=== PATIENT | male | born 1980 | race Caucasian/White ===

== ENCOUNTER 2016-08-09 15:45 | Emergency (ER) | payer BC ==
[~2016-08-09] VITALS: Ht 172.7 cm; Wt 72.6 kg
[2016-08-09] MEDS ORDERED: PROPECIA1 MG PO (16:05)
--- NOTE | 2016-08-09 16:26 | Emergency Room Report ---
History of Present Illness General Chief Complaint: Fever Source: Patient Present Illness HPI The patient is a 35-year-old male with a history of inflammatory bowel disease presenting for 3 weeks of continuous fever. The patient states that he was seen by his primary care doctor was unable to provide a diagnosis and told the patient to come to the emergency department. The patient has had a negative flu swab and was treated with Tamiflu which did not help. The patient has been using Tylenol for fever which does help but the fever returned soon after. The patient states the temperature is range from 99.9F to 101F. the patient does admit to a cough which began 5 days prior. The patient denies any other symptoms Including nausea, vomiting, shortness of breath, chest pain, night sweats, rash, abdominal pain, diarrhea, constipation. The patient denies recent travel Allergies: Coded Allergies: No Known Allergies (Unverified , 08/09/16) Patient History Past Medical History: see triage record Pertinent Family History: none Reviewed Nursing Documentation: PMH: Agreed, PSxH: Agreed Nursing Documentation-PMH Past Medical History: No History, Except For Hx Gastrointestinal Problems: Yes - IBS Review of Systems All Other Systems: negative except mentioned in HPI Physical Exam Vital Signs Date Time Temp Pulse Resp B/P Pulse Ox O2 Delivery O2 Flow Rate FiO2 08/09/16 15:55 99.1 124 20 147/93 99 Room Air Sp02 EP Interpretation: reviewed, normal General Appearance: no apparent distress, alert, GCS 15, non-toxic Head: normocephalic, atraumatic Eyes: bilateral eye PERRL, bilateral eye normal inspection ENT: hearing grossly normal, normal pharynx, no angioedema, normal voice, uvula midline, moist mucus membranes Neck: full range of motion, supple/symm/no masses Respiratory: chest non-tender, lungs clear, normal breath sounds, speaking full sentences Cardiovascular #1: regular rate, rhythm, no edema Cardiovascular #2: 2+ carotid (R), 2+ carotid (L), 2+ radial (R), 2+ radial (L) , 2+ dorsalis pedis (R), 2+ dorsalis pedis (L) Gastrointestinal: normal bowel sounds, non tender, soft, no mass, non-distended , no guarding, no rebound Rectal: deferred Genitourinary: normal inspection, no CVA tenderness Musculoskeletal: back normal, gait/station normal, normal range of motion, non- tender Neurologic: alert, oriented x3, responsive, motor strength/tone normal, sensory intact, speech normal Psychiatric: judgement/insight normal, memory normal, mood/affect normal, no suicidal/homicidal ideation Reflexes: 3+ bicep (R), 3+ bicep (L), 3+ tricep (R), 3+ tricep (L), 3+ knee (R) , 3+ knee (L) Skin: normal color, no rash, warm/dry, well hydrated Lymphatic: no adenopathy Medical Decision Making PA Attestation Dr. Muir is my supervising physician. Patient management was discussed with my supervising physician Diagnostic Impression: Primary Impression: Cholelithiasis ER Course The patient is a 35-year-old male with a history of inflammatory bowel disease presenting for 3 weeks of continuous fever. Differential diagnosis considered: Influenza, pneumonia, meningitis, IBD, gastroenteritis, hepatitis, cholecystitis, urinary tract infection, among others PE: Vitals WNL. Afebrile. NAD HEENT exam unremarkable. Lungs are clear to auscultation bilaterally. Heart RRR. Abdomen is soft and nontender. Normal bowel sounds. Nondistended. No masses. Skin is warm and dry. No discoloration. CBC shows leukocytosis with lymphocytosis. CMP: Shows elevated AST/ALT. Amylase and lipase are within normal limits. Urinalysis unremarkable Ultrasound shows gallstones. Otherwise unremarkable per technical rep. The patient is given IV fluids and Tylenol.. The patient is informed of these results and will be discharged. ER precautions are given and the patient will followup with primary care doctor. Laboratory Tests Test 08/09/16 15:57 08/09/16 16:53 Urine Color Pale yellow Urine Appearance Clear Urine pH 7.0 (4.5-8.0) Urine Specific [place] 1.000 (1.005-1.035) Urine Protein Negative (NEGATIVE) Urine Glucose (UA) Negative (NEGATIVE) Urine Ketones Negative (NEGATIVE) Urine Occult Blood Negative (NEGATIVE) Urine Nitrite Negative (NEGATIVE) Urine Bilirubin Negative (NEGATIVE) Urine Urobilinogen Normal MG/DL (0.0-1.0) Urine Leukocyte Esterase Negative (NEGATIVE) White Blood Count 12.5 K/UL (4.8-10.8) H Red Blood Count 5.31 M/UL (4.70-6.10) Hemoglobin 15.3 G/DL (14.2-18.0) Hematocrit 46.4 % (42.0-52.0) Mean Corpuscular Volume 87 FL (80-99) Mean Corpuscular Hemoglobin 28.9 PG (27.0-31.0) Mean Corpuscular Hemoglobin Concent 33.1 G/DL (32.0-36.0) Red Cell Distribution Width 11.0 % (11.6-14.8) L Platelet Count 352 K/UL (150-450) Mean Platelet Volume 5.8 FL (6.5-10.1) L Neutrophils (%) (Auto) 43.1 % (45.0-75.0) L Lymphocytes (%) (Auto) 49.8 % (20.0-45.0) H Monocytes (%) (Auto) 6.0 % (1.0-10.0) Eosinophils (%) (Auto) 0.1 % (0.0-3.0) Basophils (%) (Auto) 1.1 % (0.0-2.0) Sodium Level 139 mEQ/L (135-145) Potassium Level 3.9 mEQ/L (3.4-4.9) Chloride Level 98 mEQ/L (98-107) Carbon Dioxide Level 27 mEQ/L (20-30) Anion Gap 14 (5-15) Blood Urea Nitrogen 7 mg/dL (7-23) Creatinine 1.1 mg/dL (0.7-1.2) Estimate Glomerular Filtration Rate > 60 mL/min (>60) Glucose Level 119 mg/dL (74-106) H Calcium Level 9.1 mg/dL (8.6-10.2) Total Bilirubin 0.3 mg/dL (0.0-1.2) Aspartate Amino Transferase (AST) 100 U/L (5-40) H Alanine Aminotransferase (ALT) 132 U/L (3-41) H Alkaline Phosphatase 61 U/L (40-129) Total Protein 7.2 g/dL (6.6-8.7) Albumin 3.9 g/dL (3.5-5.2) Globulin 3.3 g/dL Albumin/Globulin Ratio 1.1 (1.0-2.7) Lipase 25 U/L (< 60) Lab Results Impression CBC shows leukocytosis with lymphocytosis. CMP: Shows elevated AST/ALT. Amylase and lipase are within normal limits. Urinalysis unremarkable Chest X-Ray Diagnostic Results EP Interpretation: Yes Findings: no consolidation, no effusion, no pneumothorax Number of Views: 2 PA Scribe Text I am acting as scribe for my supervising physician. My supervising physician's interpretation of the chest xrays are there is no consolidation, no effusion, no acute cardiopulmonary disease, no pneumothorax CT/MRI/US Diagnostic Results CT/MRI/US Diagnostic Results : Imaging Test Ordered: Abd US Impression Gallstones per US tech. Limited exam due to patient is not NPO Last Vital Signs Date Time Temp Pulse Resp B/P Pulse Ox O2 Delivery O2 Flow Rate FiO2 08/09/16 15:55 99.1 124 20 147/93 99 Room Air Status: improved Disposition: HOME, SELF-CARE Condition: Improved Scripts Ibuprofen* (MOTRIN*) 600 Mg Tablet 600 MG ORAL Q8H Y for For Pain, #30 TAB 0 Refills Prov: NNAMDI MACHUCA 08/09/16 NNAMDI MACHUCA Aug 09, 2016 16:26
[2016-08-09 16:53] LABS: APPEARANCE,URINE CLEAR; KETONES,URINE NEGATIVE (NEGATIVE); LEUKOCYTE ESTERASE ,URINE NEGATIVE (NEGATIVE); NITRITE,URINE NEGATIVE (NEGATIVE); PROTEIN,URINE NEGATIVE (NEGATIVE); UROBILINOGEN,URINE NORMAL MG/DL (0.0-1.0)
--- NOTE | 2016-08-09 17:01 | Diagnostic Imaging Report ---
Indication: COUGH Technique: 2 views of the chest Comparison: none. Findings: Lungs and pleural spaces are clear. Heart size is normal. Bones are unremarkable except for mild degenerative changes of the thoracic spine. Impression: No acute process
[2016-08-09 17:12] LABS: BASOPHILS % (AUTO) 1.1 % (0.0-2.0); EOSINOPHILS % (AUTO) 0.1 % (0.0-3.0); LYMPHOCYTES % (AUTO) 49.8 % (20.0-45.0); MEAN CORPUSCULAR HEMOGLOBIN 28.9 PG (27.0-31.0); MEAN CORPUSCULAR HGB CONC 33.1 G/DL (32.0-36.0); MEAN CORPUSCULAR VOLUME 87 FL (80-99); MEAN PLATELET VOLUME 5.8 FL (6.5-10.1); NEUTROPHILS % (AUTO) 43.1 % (45.0-75.0); PLATELET COUNT 352 K/UL (150-450); RED BLOOD COUNT 5.31 M/UL (4.70-6.10); WHITE BLOOD COUNT 12.5 K/UL (4.8-10.8)
[2016-08-09 17:35] LABS: ALANINE AMINOTRANSFERASE 132 U/L (3-41); ALBUMIN/GLOBULIN RATIO 1.1 (1.0-2.7); ANION GAP 14 (5-15); ASPARTATE AMINO TRANSFERASE 100 U/L (5-40); CALCIUM 9.1 mg/dL (8.6-10.2); CARBON DIOXIDE 27 mEQ/L (20-30); CHLORIDE 98 mEQ/L (98-107); CREATININE 1.1 mg/dL (0.7-1.2); GLOMERULAR FILTRATION RATE > 60 mL/min (>60); HEMOLYSIS 3; LIPASE 25 U/L (< 60); POTASSIUM 3.9 mEQ/L (3.4-4.9); SODIUM 139 mEQ/L (135-145); TOTAL PROTEIN 7.2 g/dL (6.6-8.7)
[2016-08-09] MEDS ORDERED: IBUPROFEN600 MG ORAL (19:20)
[2016-08-09 19:30] VITALS: BP 138/72
--- NOTE | 2016-08-10 09:32 | Diagnostic Imaging Report ---
Indication: Abdominal pain, abnormal liver function tests Technique: Witt-scale and duplex images of the upper abdomen were obtained Comparison: None Findings: . Gallbladder is nondistended, patient was not n.p.o.. There are probably gallstones present. Sonographic Terrazas's sign is negative. Common bile duct measures 4 mm in diameter. No intrahepatic biliary ductal dilatation. Liver demonstrates normal echogenicity, no focal abnormality. Portal vein and hepatic veins are patent.. Pancreas is incompletely visualized due to overlying bowel gas, visualized portions are unremarkable. Spleen is borderline enlarged, measuring 13 cm long axis dimension. Left kidney measures 10.8 cm in length. Right kidney measures 10.8 cm length. Both kidneys demonstrate normal echogenicity. There is no hydronephrosis. Within the left renal sinus, there is an echogenic focus which measures 5 mm in diameter.. . Non-aneurysmal abdominal aorta. Impression: Contracted gallbladder, probably containing stones. Negative for dilated ducts Borderline splenomegaly Probable 5 mm nonobstructing left renal calculus Suboptimal visualization of the pancreas
== END 2016-08-09 19:30 | disposition home or self-care (01) ==
LOC: EMR 16:45
DX: K80.20 Calculus of gallbladder without cholecystitis without obstruction (principal); R50.9 Fever, unspecified; D72.820 Lymphocytosis (symptomatic); R79.89 Other specified abnormal findings of blood chemistry; R05 Cough
CPT/HCPCS: 36415; 71020; 76700; 80053; 81003; 83690; 85025; 96374